=== PATIENT | male | born 1960 | race Two or more races ===

== ENCOUNTER 2022-12-29 22:12 | Inpatient (IN) | payer BC, MEDICAID ==
[~2022-12-29] VITALS: Ht 182.9 cm; Wt 92.8 kg
[2022-12-30] VITALS (14 sets, daily range): BP systolic 100–127; BP diastolic 56–86; PULSE 69–84; RESP 11–18; TEMP 97.6–98.8; O2SAT 93–96
[2022-12-30] MEDS ORDERED: ONDANSETRON HCL 4 MG/2 ML VIAL IV PRN (02:15)
[2022-12-30] MEDS ORDERED: DOCUSATE SOD 100 MG CAP PO PRN (02:15)
[2022-12-30] MEDS ORDERED: MORPHINE SULFATE INJ 2 MG/ml SYRG IV PRN ×2 (02:15)
[2022-12-30] MEDS ORDERED: ACETAMINOPHEN 325 MG TAB PO PRN (02:15)
[2022-12-30] MEDS ORDERED: NITROGLYCERIN 0.4 MG SL TAB SL PRN (02:15)
[2022-12-30] MEDS ORDERED: HYDROcodone-ACET 5/325MG TAB PO PRN (02:15)
[2022-12-30 06:59] LABS: Basophils # (auto) 0.1 10 ^3/uL (0-0.2); Basophils % (auto) 0.7 % (0.0-2.0); Eosinophils # (auto) 0.2 10 ^3/uL (0-0.8); Eosinophils % (auto) 2.3 % (0.0-7.0); Hematocrit 47.1 % (41.0-53.0); Hemoglobin 16.3 g/dL (13.5-17.5); Lymphocytes % (auto) 31.1 % (10.0-50.0); Mean Corpuscular Hgb Conc. 34.6 g/dL (32.0-36.0); Mean Corpuscular Volume 98.2 fL (80.0-100.0); Monocytes # (auto) 1.1 10 ^3/uL (0-1.3); Monocytes % (auto) 10.8 % (0.0-12.0); Neutrophils # (auto) 5.4 10 ^3/uL (1.6-8.6); Neutrophils % (auto) 55.1 % (37.0-80.0); Nucleated Red Blood Cells % 0.2 %; Red Cell Distribution Width 12.7 % (11.8-14.3); White Blood Cell 9.8 10^3/uL (4.4-10.8)
[2022-12-30 07:01] LABS: Alanine Aminotransferase 26 U/L (7-40); Alkaline Phosphatase 104 U/L (46-116); Anion Gap 4 (5-15); Aspartate Aminotransferase 39 U/L (13-40); BUN/Creatinine Ratio 9.5 (10.0-20.0); Blood Urea Nitrogen 9 mg/dL (9-23); Calcium 9.1 mg/dL (8.5-10.1); Carbon Dioxide 28 mmol/L (20-30); Chloride 107 mmol/L (98-107); Glucose 185 mg/dL (74-106); Potassium 4.5 mmol/L (3.5-5.1); Sodium 139 mmol/L (136-145)
[2022-12-30 07:02] LABS: Albumin 4.2 g/dL (3.2-4.8); Bilirubin, Total 0.6 mg/dL (0.2-1.0); Total Protein 6.8 g/dL (5.7-8.2)
[2022-12-30] MEDS ORDERED: CLOPIDOGREL 300 MG TAB PO ONE (07:45)
[2022-12-30] MEDS ORDERED: HEPARIN DRIP/D5W 100UNITS/ML 250 ML IV SCH (07:45)
[2022-12-30] MEDS ORDERED: ASPirin 325 MG TAB PO ONE (07:45)
[2022-12-30 08:02] LABS: Triglycerides 145 mg/dL (< 150)
[2022-12-30 08:03] LABS: LDL Cholesterol 144 mg/dL (< 100)
[2022-12-30 08:04] LABS: Cholesterol 186 mg/dL (< 200); HDL Cholesterol 31 mg/dL (40-59)
[2022-12-30 08:20] LABS: INR 1.06 (0.9-1.15); Prothrombin Time 11.1 sec (9.3-11.8)
[2022-12-30] MEDS ORDERED: LIDOCAINE 2%HCL (LOCAL ANESTH.) INJ 20ML MDV ONE (08:24)
[2022-12-30] MEDS ORDERED: IODIXANOL 320MG/ML 100ML BTL IV ONE ×2 (08:24→09:22)
[2022-12-30] MEDS ORDERED: VERAPAMIL 2.5MG/ML INJ 2ML VIAL IV ONE (08:31)
[2022-12-30] MEDS ORDERED: MIDAZOLAM HCL 2MG/2ML 2ml VIAL (1mg/ml) ONE (08:31)
[2022-12-30] MEDS ORDERED: ANGIOMAX 250 MG VIAL IV ONE (08:31)
[2022-12-30] MEDS ORDERED: HEPARIN SODIUM (PORCINE) 5000 UNITS/ML 1ML VIAL ONE (08:31)
[2022-12-30] MEDS ORDERED: fentaNYL CITRATE 100 MCG/2 ML VL ONE (08:31)
[2022-12-30] MEDS ORDERED: SODIUM CHL 0.9% 50 ML ONE (08:32)
[2022-12-30] MEDS ORDERED: HEPARIN SODIUM (PORCINE) 5000 UNITS/ML 1ML VIAL IV ONE (08:45)
[2022-12-30] MEDS ORDERED: ASPirin 325 MG TAB ONE (09:57)
[2022-12-30] MEDS ORDERED: CLOPIDOGREL 300 MG TAB ONE (09:57)
[2022-12-30] MEDS: FAMOTIDINE (10MG/ML) 2ML VL IV SCH (11:53)
[2022-12-30] MEDS: NICOTINE 14 MG/24HR TOPICAL PATCH TD SCH (11:54)
[2022-12-30] MEDS: cefTRIAXone 1GM/50ML D5W 50 ML IV SCH (11:55)
[2022-12-30] MEDS: SODIUM CHLOR 0.9% PF (SALINE LOCK) 10ML VIAL/SYR IV SCH ×3 (14:00→21:57)
[2022-12-30] MEDS ORDERED: DEXTROSE (50%) 50ML SYRG IV PRN (14:30)
[2022-12-30] MEDS: ACCU-CHEK COMFORT CURVE STRIP VI SCH ×2 (17:00→21:50)
[2022-12-30] MEDS: InsuLIN REG 1unit/0.01ml Soln (100units/ml) SC SCH (17:00)
[2022-12-30] MEDS: CARVEDILOL 3.125 MG TAB PO SCH (21:59)
[2022-12-30] MEDS ORDERED: ATORVASTATIN 20 MG TAB PO SCH ×2 (22:00)
[2022-12-30] MEDS ORDERED: InsuLIN REG 1unit/0.01ml Soln (100units/ml) SC SCH (22:00)
[2022-12-31] VITALS (7 sets, daily range): BP systolic 100–115; BP diastolic 71–75; PULSE 66–80; RESP 16–18; TEMP 97.9–98.5; O2SAT 95–97
[2022-12-31] MEDS: SODIUM CHLOR 0.9% PF (SALINE LOCK) 10ML VIAL/SYR IV SCH ×2 (06:03→17:48)
[2022-12-31] MEDS: ACCU-CHEK COMFORT CURVE STRIP VI SCH ×3 (06:06→17:00)
[2022-12-31] MEDS: InsuLIN REG 1unit/0.01ml Soln (100units/ml) SC SCH ×3 (06:13→17:00)
[2022-12-31 06:21] LABS: Alanine Aminotransferase 15 U/L (7-40); Albumin 4.2 g/dL (3.2-4.8); Alkaline Phosphatase 105 U/L (46-116); Anion Gap 7 (5-15); Aspartate Aminotransferase 31 U/L (13-40); BUN/Creatinine Ratio 8.4 (10.0-20.0); Bilirubin, Total 0.8 mg/dL (0.2-1.0); Blood Urea Nitrogen 9 mg/dL (9-23); Calcium 8.9 mg/dL (8.7-10.4); Carbon Dioxide 27 mmol/L (20-30); Chloride 103 mmol/L (98-107); Glucose 179 mg/dL (74-106); Potassium 4.1 mmol/L (3.5-5.1); Sodium 137 mmol/L (136-145); Total Protein 6.9 g/dL (5.7-8.2)
[2022-12-31 06:33] LABS: Basophils # (auto) 0.1 10 ^3/uL (0-0.2); Basophils % (auto) 0.7 % (0.0-2.0); Eosinophils # (auto) 0.2 10 ^3/uL (0-0.8); Eosinophils % (auto) 1.8 % (0.0-7.0); Hematocrit 48.4 % (41.0-53.0); Hemoglobin 16.6 g/dL (13.5-17.5); Lymphocytes # (auto) 2.6 10 ^3/uL (0.4-5.4); Lymphocytes % (auto) 22.7 % (10.0-50.0); Mean Corpuscular Hemoglobin 33.8 pg (28.0-32.0); Mean Corpuscular Hgb Conc. 34.2 g/dL (32.0-36.0); Mean Corpuscular Volume 98.9 fL (80.0-100.0); Monocytes # (auto) 1.4 10 ^3/uL (0-1.3); Monocytes % (auto) 11.9 % (0.0-12.0); Neutrophils # (auto) 7.2 10 ^3/uL (1.6-8.6); Neutrophils % (auto) 62.9 % (37.0-80.0); Nucleated Red Blood Cells % 0.2 %; Red Cell Distribution Width 12.9 % (11.8-14.3); White Blood Cell 11.5 10^3/uL (4.4-10.8)
[2022-12-31] MEDS ORDERED: EMPAGLIFLOZIN 10 MG TAB PO SCH (07:00)
[2022-12-31] MEDS ORDERED: SPIRONOLACTONE 25 MG TAB PO SCH (10:00)
[2022-12-31] MEDS ORDERED: ASPirin 81 mg TAB PO SCH (10:00)
[2022-12-31] MEDS ORDERED: CLOPIDOGREL BISULFATE 75 MG TAB PO SCH (10:00)
[2022-12-31] MEDS ORDERED: LISINOPRIL 5 MG TAB PO SCH (10:00)
[2022-12-31] MEDS: CARVEDILOL 3.125 MG TAB PO SCH (10:03)
[2022-12-31] MEDS: FAMOTIDINE (10MG/ML) 2ML VL IV SCH (10:05)
[2022-12-31] MEDS: cefTRIAXone 1GM/50ML D5W 50 ML IV SCH (10:05)
[2022-12-31] MEDS: NICOTINE 14 MG/24HR TOPICAL PATCH TD SCH (10:06)
[2022-12-31] MEDS ORDERED: ASPI-325 PO (15:09)
[2022-12-31] MEDS ORDERED: ATO40T PO (15:09)
[2022-12-31] MEDS ORDERED: CAR3125T PO (15:09)
[2022-12-31] MEDS ORDERED: SPIR25TA PO (15:09)
[2022-12-31] MEDS ORDERED: EMPA1TAB PO (15:09)
[2022-12-31] MEDS ORDERED: CLOP75TA70 PO (15:09)
[2022-12-31] MEDS ORDERED: NITR0.4S29 SL (15:09)
[2022-12-31] MEDS ORDERED: LISI-275 PO (15:09)
[2023-01-01] MEDS ORDERED: SITA50TA PO (14:50)
[2023-01-01] MEDS ORDERED: METF-370 PO (14:52)
[2023-01-01] MEDS ORDERED: BLOO1KIT60 XX (14:53)
[2023-01-01] MEDS ORDERED: metFORMIN HYDROCHLORIDE 500 MG TAB PO SCH (18:00)
== END 2022-12-31 17:45 | disposition home or self-care (01) | DRG 321 ==
LOC: TELE-EAST 12-30 01:10
PROVIDERS: ADMIT Nurse Practitioner Family; ATTEND Internal Medicine
PROC: B211YZZ Fluoroscopy of Multiple Coronary Arteries using Other Contrast (ICD-10-PCS; principal; 2022-12-30)
PROC: 027137Z Dilation of Coronary Artery, Two Arteries with Four or More Drug-eluting Intraluminal Devices, Percutaneous Approach (ICD-10-PCS; 2022-12-30)
PROC: B215YZZ Fluoroscopy of Left Heart using Other Contrast (ICD-10-PCS; 2022-12-30)
PROC: 4A023N7 Measurement of Cardiac Sampling and Pressure, Left Heart, Percutaneous Approach (ICD-10-PCS; 2022-12-30)
PROC: 4A033BC Measurement of Arterial Pressure, Coronary, Percutaneous Approach (ICD-10-PCS; 2022-12-30)
PROC: B240ZZ3 Ultrasonography of Single Coronary Artery, Intravascular (ICD-10-PCS; 2022-12-30)
DX: I21.4 Non-ST elevation (NSTEMI) myocardial infarction (principal); E11.65 Type 2 diabetes mellitus with hyperglycemia; D72.829 Elevated white blood cell count, unspecified; E78.5 Hyperlipidemia, unspecified; F17.210 Nicotine dependence, cigarettes, uncomplicated; I50.9 Heart failure, unspecified; Z83.3 Family history of diabetes mellitus; Z71.6 Tobacco abuse counseling
CPT/HCPCS: 36415; 71045; 80053; 80061; 82962; 83036; 83880; 84443; 84484; 85025; 85610; 85730; 87081; 93005; 93306; 99152; C1874; C1887; G0378; J0696; J1815; J2250; J3490; Q9967